=== PATIENT | female | born 1980 | race Caucasian/White ===

== ENCOUNTER 2019-03-25 18:36 | Emergency (ER) | payer OTHER ==
[2019-03-25 18:44] VITALS: BP 119/73; PULSE 95; TEMP 98.4; BMI 35.5
[2019-03-25] MEDS ORDERED: TETANUS AND DIPHTHERIA TOXOID 0.5 ML DISP.SYRIN IM ONE (20:21)
[2019-03-25] MEDS ORDERED: IBUPROFEN 600 MG TABLET (FP) PO ONE ×2 (20:21→20:25)
[2019-03-25] MEDS ORDERED: DIPHTH,PERTUSS(ACELL),TET 0.5 ML DISP.SYRIN IM ONE (20:25)
--- NOTE | 2019-03-25 20:26 | PDOC ---
History of Present Illness - General Chief Complaint: Injury Stated Complaint: R HAND LACERATION History Source: Patient Exam Limitations: No Limitations - History of Present Illness Initial Comments: 03/25/19 20:20 Patient is a 38-year-old female with no past medical history here with laceration to the hand which occurred about 2 PM today while washing dishes. States the glass broke and sliced her on the right index finger. She applied coffee to stop the bleeding. PMD.: Dr. Eaton PMHX: as above PSOCHX: neg etoh, drug, cig ALL: NKDA Review of Systems: GENERAL/CONSTITUTIONAL: No fever or chills. No weakness. No weight change. SKIN AND BREASTS: No rash or easy bruising. HEMATOLOGIC/LYMPHATIC: No anemia, easy bleeding, or history of blood clots. ALLERGIC/IMMUNOLOGIC: No hives or skin allergy. No latex allergy. GENERAL: The patient is awake, alert, and fully oriented, in no acute distress. EXTREMITIES: Normal range of motion, no edema. No clubbing or cyanosis. No cords, erythema, or tenderness. NEUROLOGICAL: Cranial nerves II through XII grossly intact. Normal speech, normal gait, intact, 5/5 strength PIP and DIP right index. SKIN: 3 cm deep flap to the muscle, Warm, Dry, normal turgor, no rashes or lesions noted. Past History - Past Medical History Allergies/Adverse Reactions: Allergies Allergy/AdvReac Type Severity Reaction Status Date / Time No Known Allergies Allergy Verified 03/25/19 18:44 COPD: No - Suicide/Smoking/Psychosocial Hx Smoking History: Never smoked Hx Alcohol Use: No Drug/Substance Use Hx: No *Physical Exam - Vital Signs Last Vital Signs Temp Pulse Resp BP Pulse Ox 98.4 F 95 H 16 119/73 99 03/25/19 18:42 03/25/19 18:42 03/25/19 18:42 03/25/19 18:42 03/25/19 18:42 Procedures - Laceration/Wound Repair Right Finger 2nd digit Wound Length: 2.6 to 5.0 cm Wound Explored: foreign body removed (patient placed coffee on the wound to stop the bleeding and was debrided) Wound's Depth, Shape: into muscle, flap Irrigated w/ Saline: Yes Betadine Prep: Yes Anesthesia: 1% Lidocaine Suture Size/Type: 4:0, nylon Layer Closure: No Sterile Dressing Applied: Yes (with gauze and a Kurlex) Medical Decision Making - Medical Decision Making 03/25/19 20:20 Patient is a 38-year-old female with no past medical history here with laceration to the hand which occurred about 2 PM today while washing dishes. States the glass broke and sliced her on the right index finger. She applied coffee to stop the bleeding. Laceration finger Sutured I discussed the physical exam findings, ancillary test results and final diagnoses with the patient. I answered all of the patient's questions. The patient was satisfied with the care received and felt comfortable with the discharge plan and treatment plan. The Patient agrees to follow up with the primary care physician within 24-72 hours. *DC/Admit/Observation/Transfer Diagnosis at time of Disposition: Laceration - Discharge Dispostion Disposition: HOME Condition at time of disposition: Stable - Referrals - Patient Instructions Printed Discharge Instructions: DI for Laceration Repair Additional Instructions: Your Discharge Instructions: You must call primary care physician within 24 hours to arrange follow-up. Return to the Emergency Department with any new, persistent or worsening symptoms, for fever, chills, SOB, dizziness or any other concerning changes that may occur. Keep wound clean and dry. Remove the dressing in 24 hours. Wash with soap and water daily, do not soak, dry and leave open to air. Return in 2 days for wound check and 7-10 days for removal. - Post Discharge Activity
== END 2019-03-25 20:35 | disposition home or self-care (01) ==
LOC: JERFT 18:36
PROC: 3E0234Z Introduction of Serum, Toxoid and Vaccine into Muscle, Percutaneous Approach (ICD-10-PCS; principal; 2019-03-25)
PROC: 0JQJ0ZZ Repair Right Hand Subcutaneous Tissue and Fascia, Open Approach (ICD-10-PCS; 2019-03-25)
DX: S61.220A Laceration with foreign body of right index finger without damage to nail, initial encounter (principal); W25.XXXA Contact with sharp glass, initial encounter; Y93.G1 Activity, food preparation and clean up; Y92.010 Kitchen of single-family (private) house as the place of occurrence of the external cause; Y99.8 Other external cause status
CPT/HCPCS: 99281-25

== ENCOUNTER 2019-03-28 19:06 | Emergency (ER) | payer OTHER ==
--- NOTE | 2019-03-28 19:08 | PDOC ---
Rapid Medical Evaluation Time Seen by Provider: 03/28/19 19:06 Medical Evaluation: Allergies Allergy/AdvReac Type Severity Reaction Status Date / Time No Known Allergies Allergy Verified 03/25/19 18:44 03/28/19 19:06 HPI: Here for suture removal R hand PE: No gross deficits ORDERS: Nothing Discharge Disposition - Diagnosis Visit for suture removal - Referrals - Patient Instructions - Post Discharge Activity
[2019-03-28 19:10] VITALS: BP 134/88; TEMP 99.4; BMI 37.1
--- NOTE | 2019-03-28 19:32 | PDOC ---
Suture Removal/Wound Check HPI - History of Present Illness Chief Complaint: Suture/Staple Removal(Here) Stated Complaint: SUTURE REMOVEL Time Seen by Provider: 03/28/19 19:06 History Source: Yes: Patient - Previous ED Treatment Type of procedure performed on last visit: Yes: Laceration Repair Tetanus Immunization: Yes: Up to Date Past History - Past Medical History Allergies/Adverse Reactions: Allergies Allergy/AdvReac Type Severity Reaction Status Date / Time No Known Allergies Allergy Verified 03/28/19 19:10 Home Medications: Ambulatory Orders Cephalexin [Keflex] 500 mg PO QID #28 capsule 03/28/19 COPD: No - Suicide/Smoking/Psychosocial Hx Smoking History: Never smoked Hx Alcohol Use: No Drug/Substance Use Hx: No *Review of Systems - Review of Systems Constitutional: No: Chills, Fever Integumentary: Yes: Erythema *Physical Exam - Vital Signs Last Vital Signs Temp Pulse Resp BP Pulse Ox 99.4 F 116 H 20 134/88 99 03/28/19 19:07 03/28/19 19:07 03/28/19 19:07 03/28/19 19:07 03/28/19 19:07 - Physical Exam General Appearance: Yes: Appropriately Dressed. No: Apparent Distress HEENT: positive: Normal Voice Neck: positive: Supple Respiratory/Chest: negative: Respiratory Distress Integumentary: positive: Dry, Warm, Other (laceration noted to dorsum of R 2nd MCP joint, 1 corner of lac w/ minimal erythema and ttp, no induration, discharge , FROMI to finger w/ no sig pain) Neurologic: positive: Fully Oriented, Alert, Normal Mood/Affect Medical Decision Making - Medical Decision Making 03/28/19 19:35 38 yo F, no sig hx, seen in ED 3 days ago for hand laceration and s/p epair, here for wound check. Report new pain/redness to site of wound. No discharge, f/ c See exam Possible early cellulitis to R hand laceration S/p repair 3 days ago No e/o abscess or deep space infxn -Dc w/ abx -wound check in 2 days *DC/Admit/Observation/Transfer Diagnosis at time of Disposition: Visit for wound check - Discharge Dispostion Disposition: HOME Condition at time of disposition: Good - Prescriptions Prescriptions: Cephalexin [Keflex] 500 mg PO QID #28 capsule - Referrals Referrals: Manpreet Jaramillo MD [Primary Care Provider] - - Patient Instructions Additional Instructions: There might be an early infection to your wound Take antibiotics as directed Return for wound check in 2 days Your sutures come out on the 01 of April for suture removal - Post Discharge Activity
[2019-03-28 19:38] VITALS: PULSE 108
== END 2019-03-28 19:38 | disposition home or self-care (01) ==
LOC: JERFT 19:06
DX: Z48.817 Encounter for surgical aftercare following surgery on the skin and subcutaneous tissue (principal)
CPT/HCPCS: 99281-25

== ENCOUNTER 2019-04-03 14:55 | Emergency (ER) | payer OTHER ==
--- NOTE | 2019-04-03 14:59 | PDOC ---
Rapid Medical Evaluation Time Seen by Provider: 04/03/19 14:57 Medical Evaluation: Allergies Allergy/AdvReac Type Severity Reaction Status Date / Time No Known Allergies Allergy Verified 03/28/19 19:10 04/03/19 14:57 CC: breast pain and suture removal PE: Suture line c/d/i. No s/s infection. Breast exam deferred. Orders: nothing Pt will proceed to ER for further evaluation. Discharge Disposition - Diagnosis Encounter for removal of sutures, Breast pain, left - Referrals - Patient Instructions - Post Discharge Activity
[2019-04-03 15:03] VITALS: BP 127/86; PULSE 106; TEMP 99.2; BMI 35.1
--- NOTE | 2019-04-03 15:42 | PDOC ---
Suture Removal/Wound Check HPI - History of Present Illness Chief Complaint: Suture/Staple Removal(Here) Stated Complaint: STITCHES REMOVAL/ CHEST PAIN Time Seen by Provider: 04/03/19 14:57 History Source: Yes: Patient Exam Limitations: Yes: No Limitations - Previous ED Treatment Type of procedure performed on last visit: Yes: Laceration Repair Tetanus Immunization: Yes: Up to Date Antibiotics Prescribed: No - Onset of Previous Treatment Option to Enter number here: 11 Select one - (for the option above): Days Past History - Travel Traveled outside of the country in the last 30 days: No Close contact w/someone who was outside of country & ill: No - Past Medical History Allergies/Adverse Reactions: Allergies Allergy/AdvReac Type Severity Reaction Status Date / Time No Known Allergies Allergy Verified 04/03/19 15:04 Home Medications: Ambulatory Orders Cephalexin [Keflex] 500 mg PO QID #28 capsule 03/28/19 Ibuprofen 600 mg PO TID #20 tablet 04/03/19 COPD: No - Psycho Social/Smoking Cessation Hx Smoking History: Never smoked Have you smoked in the past 12 months: No Information on smoking cessation initiated: No Hx Alcohol Use: No Drug/Substance Use Hx: No Suture Removal/Wound Check PE - Physical Exam Laceration/Wound Check Symptoms: reports: None Current Severity Level: None Maximum Severity Level: None Pain Localization: None Location of Laceration/Wound: right: Hand, left: Chest (bilateral breast with no lumps,no nipple discharge) Pain Radiation: None *Review of Systems - Review of Systems Able to Perform ROS?: Yes Constitutional: No: Chills, Fever HEENTM: No: Ear Pain, Nose Pain, Nose Congestion, Throat Pain Respiratory: No: Orthopnea, Shortness of Breath, SOB at Rest, Wheezing Cardiac (ROS): Yes: Other (c/o left breast pain x1 week ). No: Chest Pain, Edema, Lightheadedness, Palpitations ABD/GI: No: Poor Appetite, Vomiting, Indigestion : No: Burning, Dysuria, Discharge, Incontinence, Pain Musculoskeletal: No: Gout, Joint Pain, Muscle Weakness Neurological: No: Numbness, Paresthesia, Tremors *Physical Exam - Vital Signs Last Vital Signs Temp Pulse Resp BP Pulse Ox 99.2 F 106 H 18 127/86 100 04/03/19 14:58 04/03/19 14:58 04/03/19 14:58 04/03/19 14:58 04/03/19 14:58 - Physical Exam General Appearance: Yes: Appropriately Dressed HEENT: positive: TMs Normal, Pharynx Normal Neck: positive: Supple. negative: Lymphadenopathy (R), Lymphadenopathy (L) Respiratory/Chest: positive: Lungs Clear, Other (no swellling of left breast, no redness, no lumps felt, no nipple discharge ) Cardiovascular: positive: Regular Rhythm, Regular Rate Musculoskeletal: negative: Vertebral Tenderness Extremity: positive: Normal Capillary Refill, Other (+sutures to right index finger) Neurologic: positive: Fully Oriented Medical Decision Making - Medical Decision Making 04/03/19 15:36 38 year old female presents here for suture removal. Sutures in place x 11 days , denies fever, chills or drainage from wound, Also reports left breast pain intermittently x 1 week with no trauma to breast, no nipple discharge #suture removed 14 nylons, patient tolerated well 04/03/19 19:51 # left breast pain analgesia given referred to clam picker for further evaluation of breast and referral to breast clinic Discharge - Discharge Information Problems reviewed: Yes Clinical Impression/Diagnosis: Encounter for removal of sutures, Breast pain, left Condition: Good Disposition: HOME - Admission No - Additional Discharge Information Prescriptions: Ibuprofen 600 mg PO TID #20 tablet - Follow up/Referral Referrals: Pat River MD [Staff Physician] - (call for appointment ) - Patient Discharge Instructions Patient Printed Discharge Instructions: DI for Suture Removal Additional Instructions: Please call primary physician to follow up for further evaluation of breast pain Return to emergency room for worsening breast pain - Post Discharge Activity Work/Back to School Note: Back to Work
[2019-04-03] MEDS ORDERED: IBUPROFEN 600 MG TABLET (FP) PO ONE ×2 (15:48→15:53)
== END 2019-04-03 16:09 | disposition home or self-care (01) ==
LOC: JERFT 14:55
DX: Z48.817 Encounter for surgical aftercare following surgery on the skin and subcutaneous tissue (principal); Z48.02 Encounter for removal of sutures; N64.4 Mastodynia
CPT/HCPCS: 99281-25

== ENCOUNTER 2021-03-03 04:28 | Day surgery (SDC) | payer OTHER ==
[2021-02-27 11:02] VITALS: BMI 34.9
[2021-03-03] MEDS ORDERED: IBUPROFEN 400 MG TABLET (FP) PO PRN (06:11)
[2021-03-03] MEDS ORDERED: ACETAMINOPHEN 325 MG TABLET (FP) PO PRN (06:11)
[2021-03-03] MEDS ORDERED: oxyCODONE HCL 5 MG TABLET PO PRN (06:11)
[2021-03-03] MEDS ORDERED: ONDANSETRON 4 MG/2 ML VIAL IVPUSH PRN ×2 (09:04→13:00)
[2021-03-03] MEDS ORDERED: KETOROLAC TROMETHAMINE 30 MG/1 ML VIAL IVPUSH ONE (09:04)
[2021-03-03] MEDS ORDERED: LACTATED RINGERS SOLUTION 1,000 ML IV SCH (09:15)
[2021-03-03] MEDS ORDERED: KETOROLAC TROMETHAMINE 30 MG/1 ML VIAL ONE (09:15)
[2021-03-03 12:00] VITALS: BP 107/59; PULSE 86; TEMP 97.1
== END 2021-03-03 12:00 | disposition home or self-care (01) ==
LOC: JASU-SURG 04:28
PROVIDERS: ATTEND Obstetrics & Gynecology
PROC: 0UB98ZX Excision of Uterus, Via Natural or Artificial Opening Endoscopic, Diagnostic (ICD-10-PCS; principal; 2021-03-03 07:30)
PROC: 0UDB8ZZ Extraction of Endometrium, Via Natural or Artificial Opening Endoscopic (ICD-10-PCS; 2021-03-03 07:30)
DX: N92.0 Excessive and frequent menstruation with regular cycle (principal); N84.0 Polyp of corpus uteri
CPT/HCPCS: 81025; 94760

== ENCOUNTER 2022-08-03 18:24 | Emergency (ER) | payer OTHER ==
[2022-08-03 18:48] VITALS: BP 168/75; PULSE 91; RESP 18; TEMP 98.6; BMI 29.8
== END 2022-08-03 20:00 | disposition home or self-care (01) ==
LOC: JERFT 18:24
DX: S71.131A Puncture wound without foreign body, right thigh, initial encounter (principal); W45.8XXA Other foreign body or object entering through skin, initial encounter
CPT/HCPCS: 99282-25